=== PATIENT | male | born 1945 | race Caucasian/White ===

== ENCOUNTER 2024-09-17 20:38 | Inpatient (IN) | payer MEDICARE, MEDICAID ==
[~2024-09-17] VITALS: Ht 177.8 cm; Wt 62.7 kg
[2024-09-17 22:20] LABS: GLUCOMETER DEV NAME(LOC) ERT.6; GLUCOSE,POINT OF CARE 130 MG/DL (70-110)
[2024-09-17 22:28] LABS: BASOPHILS % (AUTO) 0.9 % (0.0-2.0); HEMATOCRIT 39.2 % (41-53); HEMOGLOBIN 12.9 g/dL (13.5-17.5); LYMPHOCYTES # (AUTO) 2.3 K/uL (1.0-4.8); LYMPHOCYTES % (AUTO) 34.1 % (22.0-44.0); MEAN CORPUSCULAR VOLUME 91 fL (80-100); MONOCYTES # (AUTO) 0.5 K/uL (0.1-1.0); MONOCYTES % (AUTO) 7.9 % (2.0-9.0); NEUTROPHILS # (AUTO) 3.6 K/uL (1.8-7.7); NEUTROPHILS % (AUTO) 55.1 % (40.0-70.0); PLATELET COUNT (AUTO) 216 K/uL (150-450); RED CELL DISTRIBUTION WIDTH 13.8 % (11.5-14.5); WHITE BLOOD COUNT (AUTO) 6.6 K/uL (4.5-11.0)
[2024-09-17 22:34] LABS: ANION GAP 8 mmol/L (8-16); CARBON DIOXIDE 26 mmol/L (22-29); CHLORIDE 103 mmol/L (98-107); CREATININE 0.74 mg/dL (0.60-1.30); GLOMERULAR FILTR. RATE CALC > 60 mL/min (>60); GLUCOSE,RANDOM 125 mg/dL (70-110); POTASSIUM 3.9 mmol/L (3.5-5.1); SODIUM SERUM 137 mmol/L (136-145); UREA NITROGEN, BLOOD 17 mg/dL (7-18)
[2024-09-17 22:40] LABS: ALCOHOL, BLOOD (SERUM) < 3 mg/dL (0-10)
[2024-09-18] MEDS ORDERED: LORazepam 2 MG TABLET PO PRN (01:45)
[2024-09-18] MEDS ORDERED: ZOLPIDEM TARTRATE 10 MG TABLET PO PRN (01:45)
[2024-09-18 04:58] LABS: COVID AG,FIA SOURCE NASAL SWAB; SARS-COV2 (COVID) ANTIGEN,FIA Negative (Negative)
[2024-09-18 15:36] LABS: ALCOHOL, URINE DRUG SCREEN NEGATIVE (NEGATIVE); AMPHET/METH SCREEN,URINE NEGATIVE (NEGATIVE); APPEARANCE,URINE TURBID (CLEAR); BARBITURATE SCREEN, URINE NEGATIVE (NEGATIVE); BENZODIAZEPINES SCREEN,URINE NEGATIVE (NEGATIVE); BILIRUBIN,URINE NEGATIVE (NEGATIVE); CANNABINOID SCREEN,URINE NEGATIVE (NEGATIVE); COCAINE SCREEN,URINE NEGATIVE (NEGATIVE); COLOR,URINE LIGHT ORANGE (YELLOW); GLUCOSE, URINE (UA) NEGATIVE (NEGATIVE); KETONES,URINE NEGATIVE (NEGATIVE); LEUKOCYTE ESTERASE ,URINE LARGE (NEGATIVE); METHADONE SCREEN, URINE NEGATIVE (NEGATIVE); NITRATE,URINE NEGATIVE (NEGATIVE); OCCULT BLOOD,URINE LARGE (NEGATIVE); OPIATE SCREEN,URINE NEGATIVE (NEGATIVE); PHENCYCLIDINE SCREEN,URINE NEGATIVE (NEGATIVE); PROTEIN,URINE 30-70 mg/dL (NEGATIVE); SPECIFIC GRAVITIY, URINE 1.012 (1.003-1.030); UROBILINOGEN,URINE <=1.0 mg/dL (<=1.0)
[2024-09-18 15:54] LABS: BACTERIA,URINE Moderate /HPF (None Seen); RBC,URINE >100 /HPF (0-2); SQUAMOUS EPITHELIAL CELL,UR Rare /LPF (None Seen); WBC,URINE >100 /HPF (0-5)
[2024-09-18] MEDS: CEPHALEXIN MONOHYDRATE 500 MG CAPSULE PO ONE (18:03)
[2024-09-18 20:45] VITALS: O2SAT 97
[2024-09-19 00:55] VITALS: BP 135/71; PULSE 72; RESP 18; TEMP 98; O2SAT 98
[2024-09-19] MEDS ORDERED: INFLUENZA VIRUS VACCINE TVS (6MO+) 2024-25/PF 45 MCG/0.5 ML SYRINGE IM. ONE (07:15)
[2024-09-19] MEDS ORDERED: IBUPROFEN 400 MG TABLET PO PRN (07:30)
[2024-09-19] MEDS ORDERED: LOPERAMIDE HCL 2 MG CAPSULE PO PRN (07:30)
[2024-09-19] MEDS ORDERED: MAG HYDROX/ALUMINUM HYD/SIMETH ES 30 ML SUSPENSION UDCUP PO PRN (07:30)
[2024-09-19] MEDS ORDERED: ALBUTEROL SULFATE HFA 90 MCG/PUFF 8 GM INHALER IH PRN (07:30)
[2024-09-19] MEDS ORDERED: MAGNESIUM HYDROXIDE SUSPENSION 30 ML UDCUP PO PRN (07:30)
[2024-09-19] MEDS ORDERED: PETROLATUM,WHITE 28 GM JELLY TP PRN (07:30)
[2024-09-19] MEDS ORDERED: NICOTINE 14 MG/24 HOUR PATCH TD PRN (07:30)
[2024-09-19] MEDS ORDERED: GuaiFENesin/D-METHORPHAN [SUGAR-FREE] 200-20MG/10 ML SYRUP UDCUP PO PRN (07:30)
[2024-09-19] MEDS ORDERED: ACETAMINOPHEN 325 MG TABLET PO PRN (07:30)
[2024-09-19] MEDS ORDERED: DOCUSATE SODIUM 100 MG CAPSULE PO PRN (07:30)
[2024-09-19] MEDS ORDERED: CloNIDine HCL 0.1 MG TABLET PO PRN (07:30)
[2024-09-19] MEDS ORDERED: ONDANSETRON 4 MG TABLET PO PRN (07:30)
[2024-09-19 10:58] VITALS: BP 141/62; PULSE 61; RESP 17; TEMP 97.3; O2SAT 99
[2024-09-19] MEDS ORDERED: CITA10TA99 PO (16:06)
[2024-09-19] MEDS: CITALOPRAM HYDROBROMIDE 10 MG TABLET PO SCH (17:03)
[2024-09-19 21:48] VITALS: BP 148/71; PULSE 61; RESP 17; TEMP 97; O2SAT 99
[2024-09-20 07:21] LABS: HEMOGLOBIN A1C 6.3 % (3.8-5.6)
[2024-09-20 07:38] LABS: CHOL/HDL RATIO 2.4 (4.2-7.3); THYROID STIMULATING HORMONE 6.66 uIU/mL (0.36-3.74)
[2024-09-20 10:40] VITALS: BP 144/93; PULSE 59; RESP 17; TEMP 97.3; O2SAT 100
[2024-09-20 23:38] VITALS: BP 150/56; PULSE 51; RESP 18; TEMP 97.1; O2SAT 97
[2024-09-21] MEDS: CEPHALEXIN MONOHYDRATE 500 MG CAPSULE PO SCH (09:50)
[2024-09-21 10:45] VITALS: BP 118/57; PULSE 61; RESP 18; TEMP 97.4; O2SAT 98
[2024-09-21 23:00] VITALS: BP 143/74; PULSE 65; RESP 18; TEMP 97.4; O2SAT 100
[2024-09-22 10:18] VITALS: BP 138/64; PULSE 63; RESP 17; TEMP 97.5; O2SAT 95
[2024-09-22 21:45] VITALS: BP 128/73; PULSE 57; RESP 18; TEMP 98.2; O2SAT 99
[2024-09-23 10:00] VITALS: BP 140/52; PULSE 51; RESP 17; TEMP 97; O2SAT 9
[2024-09-23 21:13] VITALS: BP 159/68; PULSE 51; RESP 18; TEMP 97.4; O2SAT 99
[2024-09-24] MEDS ORDERED: CEPH-558 PO (14:08)
[2024-09-24 16:08] VITALS: BP 143/66; PULSE 59; RESP 18; TEMP 97.5; O2SAT 98
== END 2024-09-24 18:16 | DRG 885 ==
LOC: EMS 20:38 → 3EX 09-19 01:12 → 3EI 09-19 15:30
PROVIDERS: ADMIT Psychiatry & Neurology Child & Adolescent Psychiatry; ATTEND Psychiatry & Neurology Child & Adolescent Psychiatry
PROC: GZ52ZZZ Individual Psychotherapy, Cognitive (ICD-10-PCS; principal; 2024-09-19)
DX: F33.3 Major depressive disorder, recurrent, severe with psychotic symptoms (principal); N39.0 Urinary tract infection, site not specified; F03.911 Unspecified dementia, unspecified severity, with agitation; F03.93 Unspecified dementia, unspecified severity, with mood disturbance; E11.9 Type 2 diabetes mellitus without complications; I10 Essential (primary) hypertension; E78.00 Pure hypercholesterolemia, unspecified; Z20.822 Contact with and (suspected) exposure to COVID-19; Z86.73 Personal history of transient ischemic attack (TIA), and cerebral infarction without residual deficits; Z79.899 Other long term (current) drug therapy; Z91.148 Patient's other noncompliance with medication regimen for other reason
CPT/HCPCS: 80048; 80061; 80307; 81001; 82962; 83036; 84443; 85025; 87077; 87081; 87086; 99285; G0480